=== PATIENT | female | born 1955 | race Caucasian/White ===

== ENCOUNTER 2016-12-15 19:00 | Emergency (ER) | payer BC ==
[~2016-12-15] VITALS: Ht 175.3 cm; Wt 86.4 kg
[2016-12-15 19:58] LABS: HEMATOCRIT 40.1 % (36.0-46.0); MCH 30.1 PG (29.0-34.0); MCHC 32.9 G/DL (30.0-36.0); MCV 91.3 FL (83-99); MEAN PLAT.VOLUME 9.3 uM^3 (9.5-12.4); PLATELET COUNT 224 K/uL (156-360); RBC DIS.WIDTH-CV 13.6 % (11.8-14.6); RED BLOOD COUNT 4.39 M/uL (3.80-5.20); WHITE BLOOD COUNT 25.6 K/uL (4.1-10.2)
[2016-12-15 20:15] LABS: CHLORIDE 99 mEq/L (99-109); POTASSIUM 3.6 mEq/L (3.7-5.4); SODIUM 137 mEq/L (136-147)
[2016-12-15 20:17] LABS: GLUCOSE 95 mg/dL (70-99)
[2016-12-15 20:18] LABS: ANION GAP 12 MEQ/L (2-14)
[2016-12-15 20:21] LABS: GFR ESTIMATE (CALCULATED) > 59 mL/min/; UREA NITROGEN (BUN) 14 mg/dL (9-23)
[2016-12-15 20:22] LABS: TROP-I INTERPRETATION NEGATIVE; TROPONIN-I < 0.01 ng/mL (0.0-0.30)
[2016-12-15 21:05] LABS: TOTAL BILIRUBIN 0.7 mg/dL (0.0-1.0)
[2016-12-15 21:06] LABS: ALKALINE PHOSPHATASE 73 IU/L (3-129)
[2016-12-15 21:09] LABS: DIRECT BILIRUBIN 0.3 mg/dL (0.0-0.3)
[2016-12-15 21:10] LABS: LIPASE 33 U/L (1.0-51.0)
[2016-12-15 22:18] VITALS: BP 116/67
== END 2016-12-15 22:19 | disposition home or self-care (01) ==
LOC: EME 19:00
DX: K21.9 Gastro-esophageal reflux disease without esophagitis (principal); I10 Essential (primary) hypertension; C91.10 Chronic lymphocytic leukemia of B-cell type not having achieved remission; F41.9 Anxiety disorder, unspecified; Z87.891 Personal history of nicotine dependence
CPT/HCPCS: 71020; 76705; 80048; 80076; 83690; 84484; 85027; 93005; 99281; 99284